=== PATIENT | male | born 1940 | race Caucasian/White ===

== ENCOUNTER 2019-04-22 13:04 | Inpatient (IN) | payer OTHER ==
[~2019-04-22] VITALS: Ht 162.6 cm; Wt 64.0 kg
[2019-07-19] MEDS ORDERED: LEVO-T100 MCG PO (11:22)
[2019-07-19] MEDS ORDERED: ATORVASTATIN CA10 MG PO (11:22)
[2019-07-19] MEDS ORDERED: ZESTRIL40 M1 PO (11:23)
[2019-07-19] MEDS ORDERED: METFORMIN HCL500 M3 PO (11:23)
[2019-07-19] MEDS ORDERED: SERTRALINE HCL100 MG PO (11:24)
[2019-07-19] MEDS ORDERED: JARDIANCE10 MG PO (11:25)
[2019-07-19] MEDS ORDERED: TRAZODONE HCL150 MG PO (11:25)
[2019-07-19] MEDS ORDERED: RISPERDAL2 MG PO (11:25)
[2019-07-24] MEDS ORDERED: LORAZEPAM1 MG PO (08:58)
[2019-07-24] MEDS ORDERED: LEVO-T112 MCG PO (08:58)
[2019-07-25] MEDS ORDERED: MUPIROCIN15 GM (15:06)
[2019-07-25] MEDS ORDERED: GENTLE LAXATIVE5 M1 (15:07)
== END 2019-07-30 12:22 | disposition home or self-care (01) | DRG 330 ==
LOC: SURG 04-30 09:00 → O/R 07-23 05:35 → SURG 07-23 05:35 → EDBD 07-23 09:00 → SURG 07-23 13:54
PROVIDERS: ADMIT Colon & Rectal Surgery; ATTEND Colon & Rectal Surgery
PROC: 07BD4ZZ Excision of Aortic Lymphatic, Percutaneous Endoscopic Approach (ICD-10-PCS; 2019-07-23)
PROC: 0DTK4ZZ Resection of Ascending Colon, Percutaneous Endoscopic Approach (ICD-10-PCS; principal; 2019-07-23 07:00)
DX: D12.2 Benign neoplasm of ascending colon (principal); K91.89 Other postprocedural complications and disorders of digestive system; K56.7 Ileus, unspecified; I10 Essential (primary) hypertension; E11.9 Type 2 diabetes mellitus without complications

== ENCOUNTER 2020-07-03 05:50 | Day surgery (SDC) | payer OTHER ==
[~2020-07-03 05:50] MED LIST: ATORVASTATIN CA10 MG PO; GENTLE LAXATIVE5 M1; JARDIANCE10 MG PO; LEVO-T100 MCG PO; LEVO-T112 MCG PO; LORAZEPAM1 MG PO; METFORMIN HCL500 M3 PO; MUPIROCIN15 GM; RISPERDAL2 MG PO; SERTRALINE HCL100 MG PO; TRAZODONE HCL150 MG PO; ZESTRIL40 M1 PO
== END 2020-07-03 09:50 | disposition home or self-care (01) ==
LOC: AMB-ENDOS 05:50
PROVIDERS: ATTEND Colon & Rectal Surgery
DX: K62.89 Other specified diseases of anus and rectum (principal); K64.1 Second degree hemorrhoids; Z20.822 Contact with and (suspected) exposure to COVID-19